=== PATIENT | female | born 1975 | race Caucasian/White ===

== ENCOUNTER 2017-10-11 21:57 | Inpatient (IN) | payer OTHER ==
[2017-10-11 22:21] VITALS: BMI 21.7
--- NOTE | 2017-10-11 22:56 | HP ---
CIWA Score - CIWA Score Nausea/Vomitin-No Nausea/No Vomiting Muscle Tremors: 4-Moderate,w/Arms Extend Anxiety: 2 Agitation: 2 Paroxysmal Sweats: 2 Orientation: 2-Disoriented Date<2 days Tacttile Disturbances: 2-Mild Itch/Numbness/Burn Auditory Disturbances: 2-Mild Harshness/Frighten Visual Disturbances: 2-Mild Sensitivity Headache: 1-Very Mild CIWA-Ar Total Score: 19 Admission ROS BHS - HPI Chief Complaint: WITHDRAWAL SYMPTOMS Allergies/Adverse Reactions: Allergies Allergy/AdvReac Type Severity Reaction Status Date / Time lactose Allergy Verified 10/11/17 22:53 LACTO Allergy Uncoded 10/11/17 22:53 History of Present Illness: 42 Y.O. WOMAN WITH AN EXTENSIVE HISTORY OF ALCOHOL DEPENDENCE IS HERE FOR HER FIRST ADMISSION TO DETOX. SHE REPORTS HER LONGEST PERIOD SOBER HAS BEEN 7 MONTHS WHILE RESIDING AT [facility]. Exam Limitations: Intoxication - Ebola screening Have you traveled outside of the country in the last 21 days: No Have you been sick,other than usual withdrawal symptoms: No - Review of Systems Constitutional: Chills, Loss of Appetite, Night Sweats, Unexplained wgt Loss EENT: reports: Double Vision, Tearing Respiratory: reports: No Symptoms reported Cardiac: reports: No Symptoms Reported GI: reports: No Symptoms Reported : reports: No Symptoms Reported Musculoskeletal: reports: Joint Pain (LEFT HIP) Integumentary: reports: No Symptoms Reported Neuro: reports: Headache, Tremors Endocrine: reports: No Symptoms Reported Hematology: reports: Anemia (CAROLA) Psychiatric: reports: Anxious, Depressed, other (Panic disorder, Agoraphobia) Other Systems: Reviewed and Negative Patient History - Patient Medical History Hx Anemia: Yes (CAROLA ) Hx Asthma: Yes Hx Chronic Obstructive Pulmonary Disease (COPD): No Hx Cancer: No Hx Cardiac Disorders: No Hx Congestive Heart Failure: No Hx Hypertension: No Hx Hypercholesterolemia: No Hx Pacemaker: No HX Cerebrovascular Accident: No Hx Seizures: No Hx Dementia: No Hx Diabetes: No Hx Gastrointestinal Disorders: Yes (GERD ) Hx Liver Disease: No Hx Genitourinary Disorders: No Hx Sexually Transmitted Disorders: No Hx Renal Disease (ESRD): No Hx Thyroid Disease: No Hx Human Immunodeficiency Virus (HIV): No Hx Hepatitis C: No Hx Depression: Yes Hx Suicide Attempt: Yes (ATTEMPTED DRUG OVERDOSE OF COLACE AT 13 Y.O.) Hx Bipolar Disorder: No Hx Schizophrenia: No Other Medical History: Agoraphobia, panic disorder, PCOS - Patient Surgical History Past Surgical History: Yes Hx Orthopedic Surgery: Yes Other Surgical History: Gastric bypass 2009; Left hip replacement 2007 Anesthesia Reaction: No - PPD History Documented Results: Positive w/o proof PPD to be Administered?: No - Reproductive History Patient is a Female of Child Bearing Age (11 -55 yrs old): Yes Last Menstrual Period: 09/30/17 Patient : No - Smoking Cessation Smoking history: Current every day smoker Have you smoked in the past 12 months: Yes Aproximately how many cigarettes per day: 10 Initiated information on smoking cessation: Yes 'Breaking Loose' booklet given: 10/11/17 - Substance & Tx. History Hx Alcohol Use: Yes Hx Substance Use: No Substance Use Type: Alcohol Hx Substance Use Treatment: Yes (7 months at [facility] in 2017) - Substances Abused Alcohol Route: Oral Frequency: Daily Amount used: 3 pints of liquor Age of first use: 20 Date of Last Use: 10/11/17 Family Disease History - Family Disease History Family Disease History: CA: Father (Thyroid; ), Respiratory: Grandparent (COPD), Mother (COPD), Other: Brother (ETOH dependence) Admission Physical Exam S - Vital Signs Vital Signs: Vital Signs - 24 hr 10/11/17 22:11 Temperature 96.7 F L Pulse Rate 75 Respiratory 18 Rate Blood Pressure 125/76 - Physical General Appearance: Yes: Disheveled, Intoxicated, Anxious HEENTM: Yes: Hearing grossly Normal, Normal ENT Inspection, Normocephalic, Normal Voice Respiratory: Yes: Chest Non-Tender, Lungs Clear, Normal Breath Sounds, No Respiratory Distress, No Accessory Muscle Use Neck: Yes: No masses,lesions,Nodules, Trachea in good position Breast: Yes: Breast Exam Deferred Cardiology: Yes: Regular Rhythm, Regular Rate Abdominal: Yes: Normal Bowel Sounds, Non Tender, Flat, Soft Genitourinary: Yes: Other (No complaints reported) Back: Yes: Normal Inspection Musculoskeletal: Yes: Other (Unsteady gait) Extremities: Yes: Normal Capillary Refill, Normal Inspection, Tremors Neurological: Yes: Alert, Normal Mood/Affect, Normal Response Integumentary: Yes: Normal Color, Dry, Warm Lymphatic: Yes: Within Normal Limits - Diagnostic (1) Alcohol dependence with uncomplicated withdrawal Current Visit: Yes Status: Chronic (2) PCOS (polycystic ovarian syndrome) Current Visit: Yes Status: Chronic (3) GERD (gastroesophageal reflux disease) Current Visit: Yes Status: Chronic (4) Nicotine dependence Current Visit: Yes Status: Chronic (5) Asthma Current Visit: Yes Status: Chronic (6) Congenital hip dislocation Current Visit: Yes Status: Chronic Cleared for Admission [facility] - Detox or Rehab [facility] Level of Care: Medically Managed Detox Regimen/Protocol: Librium S Breath Alcohol Content Breath Alcohol Content: 0.452 Urine Pregancy Test - Result Urine Test Results: Negative- NO Line Present Urine Drug Screen - Results Drug Screen Negative: Yes
[2017-10-11] MEDS ORDERED: MENTHOL/PHENOL 1 EACH UD MM PRN (23:38)
[2017-10-11] MEDS ORDERED: chlordiazePOXIDE HCL 25 MG CAPSULE PO PRN (23:38)
[2017-10-11] MEDS ORDERED: ACETAMINOPHEN 325 MG TABLET (FP) PO PRN (23:38)
[2017-10-11] MEDS ORDERED: MAGNESIUM CITRATE 300 ML BOTTLE PO PRN (23:38)
[2017-10-11] MEDS ORDERED: MAG HYDROX/AL HYDROX/SIMETH 30 ML UNIT-DOSE CUP PO PRN (23:38)
[2017-10-11] MEDS ORDERED: LOPERAMIDE HCL 2 MG CAPSULE PO PRN (23:38)
[2017-10-11] MEDS ORDERED: chlordiazePOXIDE HCL 25 MG CAPSULE PO ONE (23:38)
[2017-10-11] MEDS ORDERED: NICOTINE POLACRILEX 2 MG GUM BC PRN (23:38)
[2017-10-11] MEDS ORDERED: IBUPROFEN 400 MG TABLET (FP) PO PRN (23:38)
[2017-10-11] MEDS ORDERED: hydrOXYzine PAMOATE 50 MG CAPSULE (FP) PO PRN (23:38)
[2017-10-11] MEDS ORDERED: guaiFENesin/D-METHORPHAN HB 10 ML UNIT-DOSE CUPS PO PRN (23:38)
[2017-10-11] MEDS ORDERED: MAGNESIUM HYDROX 2400MG/30ML ORAL SUSPENSION 30 ML CUP PO PRN (23:38)
[2017-10-11] MEDS ORDERED: P-EPHED 60MG/TRIPROLIDI 2.5MG TABLET PO PRN (23:38)
[2017-10-11] MEDS ORDERED: ALBUTEROL SO4 18 GM HFA INHALER IH PRN (23:40)
[2017-10-12] MEDS: chlordiazePOXIDE HCL 25 MG CAPSULE PO SCH ×8 (01:12→22:22)
[2017-10-12] MEDS: PANTOPRAZOLE 20 MG TABLET (FP) PO SCH (10:37)
[2017-10-12] MEDS: PRENATAL VITAMINS W/ FOLIC ACID TABLET (FP) PO SCH (10:37)
[2017-10-12] MEDS: NICOTINE 14 MG/24 HOURS TOPICAL PATCH TD SCH (10:39)
[2017-10-12 10:43] LABS: URINE APPEARANCE CLEAR; URINE BILIRUBIN NEGATIVE (NEGATIVE); URINE BLOOD 1+ (NEGATIVE); URINE COLOR LTYELLOW; URINE GLUCOSE (UA) NEGATIVE (NEGATIVE); URINE KETONE NEGATIVE (NEGATIVE); URINE LEUK ESTERASE NEGATIVE (NEGATIVE); URINE NITRITE POSITIVE (NEGATIVE); URINE PROTEIN NEGATIVE (NEGATIVE); URINE UROBILINOGEN NEGATIVE mg/dL (0.2-1.0)
[2017-10-12 10:45] LABS: HEMATOCRIT 34.1 % (32.4-45.2); HEMOGLOBIN 11.3 GM/dL (10.7-15.3); MCH 31.7 pg (25.7-33.7); MEAN PLT VOLUME 6.4 fl (7.5-11.1); PLATELET COUNT 208 K/MM3 (134-434); RBC 3.55 M/mm3 (3.60-5.2); RDW 14.3 % (11.6-15.6); WHITE BLOOD COUNT 2.8 K/mm3 (4.0-10.0)
[2017-10-12 10:53] LABS: CHLORIDE 102 mmol/L (98-107); POTASSIUM 3.5 mmol/L (3.5-5.1); SODIUM 142 mmol/L (136-145)
[2017-10-12 10:55] LABS: EPI CELLS RARE /HPF (FEW); URINE BACTERIA MANY /hpf (NONE SEEN); URINE HYALINE CAST 4 /lpf; URINE MUCUS MODERATE
[2017-10-12 11:07] LABS: ALK PHOS 72 U/L (45-117); ANION GAP 12 (8-16); BILIRUBIN,TOTAL 0.4 mg/dL (0.2-1.0); BLOOD UREA NITROGEN 14 mg/dL (7-18); CALCIUM 7.7 mg/dL (8.5-10.1); CO2 28 mmol/L (21-32); CREATININE 0.6 mg/dL (0.55-1.02); GLUCOSE,RANDOM 73 mg/dL (74-106); SGOT/AST 31 U/L (15-37); SGPT/ALT 18 U/L (12-78); TOT PROT 6.1 g/dl (6.4-8.2)
--- NOTE | 2017-10-12 11:46 | PN ---
S CIWA - CIWA Score Nausea/Vomitin Muscle Tremors: 3 Anxiety: 3 Agitation: 2 Paroxysmal Sweats: 1-Minimal Palms Moist Orientation: 0-Oriented Tacttile Disturbances: 1-Very Mild Itch/Numbness Auditory Disturbances: 1-Very Mild Visual Disturbances: 0-None Headache: 2-Mild CIWA-Ar Total Score: 16 BHS Progress Note (SOAP) Subjective: ALERT,IRRITABLE,ANXIOUS,INTERRUPTED SLEEP,TREMOR Objective: 10/12/17 11:42 Vital Signs Temperature 98.2 F 10/12/17 10:24 Pulse Rate 85 10/12/17 10:24 Respiratory Rate 18 10/12/17 10:24 Blood Pressure 131/82 10/12/17 10:24 O2 Sat by Pulse Oximetry (%) EKG NSR,PROLONG QT NO CHEST PAIN,NO SOB,NO DIZZINESS Laboratory Last Values WBC 2.8 K/mm3 (4.0-10.0) L 10/12/17 08:00 RBC 3.55 M/mm3 (3.60-5.2) L 10/12/17 08:00 Hgb 11.3 GM/dL (10.7-15.3) 10/12/17 08:00 Hct 34.1 % (32.4-45.2) 10/12/17 08:00 MCV 96.0 fl (80-96) 10/12/17 08:00 MCH 31.7 pg (25.7-33.7) 10/12/17 08:00 MCHC 33.0 g/dl (32.0-36.0) 10/12/17 08:00 RDW 14.3 % (11.6-15.6) 10/12/17 08:00 Plt Count 208 K/MM3 (134-434) 10/12/17 08:00 MPV 6.4 fl (7.5-11.1) L 10/12/17 08:00 Sodium 142 mmol/L (136-145) 10/12/17 08:00 Potassium 3.5 mmol/L (3.5-5.1) 10/12/17 08:00 Chloride 102 mmol/L (98-107) 10/12/17 08:00 Carbon Dioxide 28 mmol/L (21-32) 10/12/17 08:00 Anion Gap 12 (8-16) 10/12/17 08:00 BUN 14 mg/dL (7-18) 10/12/17 08:00 Creatinine 0.6 mg/dL (0.55-1.02) 10/12/17 08:00 Creat Clearance w eGFR > 60 (>60) 10/12/17 08:00 Random Glucose 73 mg/dL (74-106) L 10/12/17 08:00 Calcium 7.7 mg/dL (8.5-10.1) L 10/12/17 08:00 Total Bilirubin 0.4 mg/dL (0.2-1.0) 10/12/17 08:00 AST 31 U/L (15-37) 10/12/17 08:00 ALT 18 U/L (12-78) 10/12/17 08:00 Alkaline Phosphatase 72 U/L (45-117) 10/12/17 08:00 Total Protein 6.1 g/dl (6.4-8.2) L 10/12/17 08:00 Albumin 3.0 g/dl (3.4-5.0) L 10/12/17 08:00 Urine Color Ltyellow 10/12/17 09:00 Urine Appearance Clear 10/12/17 09:00 Urine pH 5.0 (5.0-8.0) 10/12/17 09:00 Ur Specific [place] 1.006 (1.001-1.035) 10/12/17 09:00 Urine Protein Negative (NEGATIVE) 10/12/17 09:00 Urine Glucose (UA) Negative (NEGATIVE) 10/12/17 09:00 Urine Ketones Negative (NEGATIVE) 10/12/17 09:00 Urine Blood 1+ (NEGATIVE) H 10/12/17 09:00 Urine Nitrite Positive (NEGATIVE) 10/12/17 09:00 Urine Bilirubin Negative (NEGATIVE) 10/12/17 09:00 Urine Urobilinogen Negative mg/dL (0.2-1.0) 10/12/17 09:00 Ur Leukocyte Esterase Negative (NEGATIVE) 10/12/17 09:00 Urine WBC (Auto) 1 /hpf (3-5) 10/12/17 09:00 Urine RBC (Auto) None /hpf (0-3) 10/12/17 09:00 Ur Epithelial Cells Rare /HPF (FEW) 10/12/17 09:00 Urine Bacteria Many /hpf (NONE SEEN) 10/12/17 09:00 Hyaline Casts 4 /lpf 10/12/17 09:00 Urine Mucus Moderate 10/12/17 09:00 Assessment: 10/12/17 11:45 WITHDRAWAL SYMPTOM, Plan: CONTINUE DETOX,[facility] MONITORING TAKING METFORMIN 1000 MGS PO BID FOR POLYCYSTIC OVAREAN SYNDROME
[2017-10-12] MEDS: metFORMIN HCL 500 MG TABLET (FP) PO SCH ×2 (13:00→17:41)
--- NOTE | 2017-10-12 13:54 | CONSULT ---
[facility] Psychiatric Consult - Data Date of interview: 10/12/17 Admission source: [facility] Identifying data: First admission to [facility] for this 42 y/o female seeking detox treatment on for alcohol dependence.Patient is single without children,homeless,unemployed and supported on Public Assistance. Substance Abuse History: Confirmed by patient.See details in current [facility] report : Smoking history: Current every day smoker. Have you smoked in the past 12 months: Yes. Aproximately how many cigarettes per day: 10. Initiated information on smoking cessation: Yes. 'Breaking Loose' booklet given: . - Substance & Tx. History. Hx Alcohol Use: Yes. Hx Substance Use: No. Substance Use Type: Alcohol. Hx Substance Use Treatment: Yes (7 months at [facility] in 2017). - Substances Abused. Alcohol. Route: Oral. Frequency: Daily. Amount used: 3 pints of liquor. Age of first use: 20. Date of Last Use: 10/11/17 Medical History: Anemia,GERD,bronchial asthma,congenital hip dislocation, polycystic ovarian syndrome,history of gastric bypass (2009) and orthosurgery ( left hip replacement in 2007). Psychiatric History: No reported history of psychiatric hospitalizations.[place] is currently under the care of a private psychiatrist at the [facility] in the [place].medicated with prozac 40 mg/day + seroquel 200 mg/hs + buspar 10 mg bid.Last took her medications two days ago (self-report).Diagnose with Panic Disorder with agoraphobia.Ms Peterson denies history of suicide attempts. Physical/Sexual Abuse/Trauma History: Patient denies history of abuse. Additional Comment: Drug Screen is negative. Mental Status Exam - Mental Status Exam Alert and Oriented to: Time, Place, Person Cognitive Function: Good Patient Appearance: Well Groomed Mood: Anxious, Hopeful Affect: Mood Congruent Patient Behavior: Fatigued, Appropriate, Cooperative Speech Pattern: Clear, Appropriate Voice Loudness: Normal Thought Process: Intact, Goal Oriented Thought Disorder: Not Present Hallucinations: Denies Suicidal Ideation: Denies Homicidal Ideation: Denies Insight/Judgement: Fair Sleep: Poorly, Difficulty falling asleep Appetite: Good Muscle strength/Tone: Normal (no complaint of rigidity or weakness) Gait/Station: Normal Psychiatric Findings - Problem List ([place] 1, 2,3) (1) Alcohol dependence with uncomplicated withdrawal Current Visit: Yes Status: Chronic (2) Nicotine dependence Current Visit: Yes Status: Chronic (3) Panic disorder with agoraphobia Current Visit: Yes Status: Acute Comment: As per self-report.On medications.Currently enrolled in outatient psychiatric care at the [facility] in the [place]. (4) Insomnia Current Visit: Yes Status: Chronic - Initial Treatment Plan Initial Treatment Plan: Psychoeducation and support provided in session.Sleep hygiene recommended.Detoxification in progress.Medications : prozac 40 mg po daily + buspar 10 mg po trazodone 100 mg po hs.Side effects/benefits of each drug are discussed with the patient.No evidence of risperdal in OPD regime of medications (pharmacy claims of 08/29/17 at [facility] were revisited) .Ms Peterson consents (verbally) to this plan of care.Observation.
--- NOTE | 2017-10-12 16:44 | EKG ---
Test Reason : Blood Pressure : / mmHG Vent. Rate : 070 BPM Atrial Rate : 070 BPM P-R Int : 124 ms QRS Dur : 090 ms QT Int : 448 ms P-R-T Axes : 053 046 059 degrees QTc Int : 483 ms NORMAL SINUS RHYTHM PROLONGED QT ABNORMAL ECG WHEN COMPARED WITH ECG OF 15-SEP-2010 11:22, T WAVE INVERSION NO LONGER EVIDENT IN INFERIOR LEADS Confirmed by TRACY NG MD ([id number]) on 10/12/2017 4:44:04 PM Referred By: Confirmed By:TRACY NG MD
[2017-10-12] MEDS ORDERED: busPIRone HCL 10 MG TABLET (FP) PO SCH (22:00)
[2017-10-12] MEDS: THIAMINE HCL 100 MG TABLET (FP) PO SCH (22:22)
[2017-10-12] MEDS: traZODone HCL 100 MG TABLET (FP) PO SCH (22:22)
[2017-10-12] MEDS: busPIRone HCL 10 MG TABLET (FP) PO SCH (22:22)
[2017-10-13] MEDS: chlordiazePOXIDE 5 MG CAPSULE PO SCH ×4 (05:48→22:16)
[2017-10-13] MEDS: metFORMIN HCL 500 MG TABLET (FP) PO SCH ×2 (06:24→17:45)
[2017-10-13] MEDS: FLUoxetine HCL 20 MG CAPSULE (FP) PO SCH (10:26)
[2017-10-13] MEDS: NICOTINE 14 MG/24 HOURS TOPICAL PATCH TD SCH (10:27)
[2017-10-13] MEDS: PRENATAL VITAMINS W/ FOLIC ACID TABLET (FP) PO SCH (10:27)
[2017-10-13] MEDS: PANTOPRAZOLE 20 MG TABLET (FP) PO SCH (10:27)
[2017-10-13] MEDS: busPIRone HCL 10 MG TABLET (FP) PO SCH ×2 (10:27→22:16)
--- NOTE | 2017-10-13 13:27 | PN ---
[facility] CIWA - CIWA Score Nausea/Vomitin-No Nausea/No Vomiting Muscle Tremors: 3 Anxiety: 3 Agitation: 3 Paroxysmal Sweats: 1-Minimal Palms Moist Orientation: 0-Oriented Tacttile Disturbances: 0-None Auditory Disturbances: 0-None Visual Disturbances: 0-None Headache: 0-None Present CIWA-Ar Total Score: 10 S Progress Note (SOAP) Subjective: tremor sweat GI upset anxiety Objective: 10/13/17 13:27 Vital Signs Temperature 96.3 F L 10/13/17 10:00 Pulse Rate 88 10/13/17 10:00 Respiratory Rate 18 10/13/17 10:00 Blood Pressure 118/76 10/13/17 10:00 O2 Sat by Pulse Oximetry (%) Laboratory Last Values WBC 2.8 K/mm3 (4.0-10.0) L 10/12/17 08:00 RBC 3.55 M/mm3 (3.60-5.2) L 10/12/17 08:00 Hgb 11.3 GM/dL (10.7-15.3) 10/12/17 08:00 Hct 34.1 % (32.4-45.2) 10/12/17 08:00 MCV 96.0 fl (80-96) 10/12/17 08:00 MCH 31.7 pg (25.7-33.7) 10/12/17 08:00 MCHC 33.0 g/dl (32.0-36.0) 10/12/17 08:00 RDW 14.3 % (11.6-15.6) 10/12/17 08:00 Plt Count 208 K/MM3 (134-434) 10/12/17 08:00 MPV 6.4 fl (7.5-11.1) L 10/12/17 08:00 Sodium 142 mmol/L (136-145) 10/12/17 08:00 Potassium 3.5 mmol/L (3.5-5.1) 10/12/17 08:00 Chloride 102 mmol/L (98-107) 10/12/17 08:00 Carbon Dioxide 28 mmol/L (21-32) 10/12/17 08:00 Anion Gap 12 (8-16) 10/12/17 08:00 BUN 14 mg/dL (7-18) 10/12/17 08:00 Creatinine 0.6 mg/dL (0.55-1.02) 10/12/17 08:00 Creat Clearance w eGFR > 60 (>60) 10/12/17 08:00 POC Glucometer 78 UNITS (80-120) 10/13/17 05:47 Random Glucose 73 mg/dL (74-106) L 10/12/17 08:00 Calcium 7.7 mg/dL (8.5-10.1) L 10/12/17 08:00 Total Bilirubin 0.4 mg/dL (0.2-1.0) 10/12/17 08:00 AST 31 U/L (15-37) 10/12/17 08:00 ALT 18 U/L (12-78) 10/12/17 08:00 Alkaline Phosphatase 72 U/L (45-117) 10/12/17 08:00 Total Protein 6.1 g/dl (6.4-8.2) L 10/12/17 08:00 Albumin 3.0 g/dl (3.4-5.0) L 10/12/17 08:00 Urine Color Ltyellow 10/12/17 09:00 Urine Appearance Clear 10/12/17 09:00 Urine pH 5.0 (5.0-8.0) 10/12/17 09:00 Ur Specific [place] 1.006 (1.001-1.035) 10/12/17 09:00 Urine Protein Negative (NEGATIVE) 10/12/17 09:00 Urine Glucose (UA) Negative (NEGATIVE) 10/12/17 09:00 Urine Ketones Negative (NEGATIVE) 10/12/17 09:00 Urine Blood 1+ (NEGATIVE) H 10/12/17 09:00 Urine Nitrite Positive (NEGATIVE) 10/12/17 09:00 Urine Bilirubin Negative (NEGATIVE) 10/12/17 09:00 Urine Urobilinogen Negative mg/dL (0.2-1.0) 10/12/17 09:00 Ur Leukocyte Esterase Negative (NEGATIVE) 10/12/17 09:00 Urine WBC (Auto) 1 /hpf (3-5) 10/12/17 09:00 Urine RBC (Auto) None /hpf (0-3) 10/12/17 09:00 Ur Epithelial Cells Rare /HPF (FEW) 10/12/17 09:00 Urine Bacteria Many /hpf (NONE SEEN) 10/12/17 09:00 Hyaline Casts 4 /lpf 10/12/17 09:00 Urine Mucus Moderate 10/12/17 09:00 RPR Titer Nonreactive (NONREACTIVE) 10/12/17 08:00 lab noted Assessment: 10/13/17 13:27 withdrawal sx Plan: continue detox
[2017-10-13] MEDS: traZODone HCL 100 MG TABLET (FP) PO SCH (22:16)
[2017-10-13] MEDS: THIAMINE HCL 100 MG TABLET (FP) PO SCH (22:16)
[2017-10-13 22:21] VITALS: PULSE 73
[2017-10-14] MEDS ORDERED: chlordiazePOXIDE HCL 10 MG CAPSULE PO SCH (05:00)
[2017-10-14 06:29] VITALS: BP 116/74; TEMP 97.3
[2017-10-14] MEDS: metFORMIN HCL 500 MG TABLET (FP) PO SCH (06:34)
--- NOTE | 2017-10-14 09:11 | PN ---
S Progress Note (SOAP) Subjective: ALERT,NO COMPLAINT,NO WITHDRAWAL SYMPTOM Objective: 10/14/17 09:10 Vital Signs Temperature 97.3 F L 10/14/17 06:00 Pulse Rate 73 10/14/17 06:00 Respiratory Rate 16 10/14/17 06:00 Blood Pressure 116/74 10/14/17 06:00 O2 Sat by Pulse Oximetry (%) Assessment: 10/14/17 09:10 NO WITHDRAWAL SYMPTOM Plan: PATIENT IS STABLE FOR DISCHARGE TODAY TO GO TO [facility] TO DAY
[2017-10-14] MEDS: PRENATAL VITAMINS W/ FOLIC ACID TABLET (FP) PO SCH (09:12)
[2017-10-14] MEDS: PANTOPRAZOLE 20 MG TABLET (FP) PO SCH (09:13)
[2017-10-14] MEDS: busPIRone HCL 10 MG TABLET (FP) PO SCH (09:13)
[2017-10-14] MEDS: FLUoxetine HCL 20 MG CAPSULE (FP) PO SCH (09:13)
--- NOTE | 2017-10-14 09:16 | DS ---
[facility] Detox Discharge Summary Admission Date: 10/11/17 Discharge Date: 10/14/17 - History Present History: Alcohol Dependence Additional Comments: FOLLOW UP WITH AFTER CARE PROGRAM ARRANGEMENT Pertinent Past History: POLYCYSTIC OVARIAN SYNDROME GERD ASTHMA NICOTINE DEPENDENCE HISTORY OF CONGENITAL HIP DISLOCATION - Physical Exam Results Vital Signs: Vital Signs Temperature 97.3 F L 10/14/17 06:00 Pulse Rate 73 10/14/17 06:00 Respiratory Rate 16 10/14/17 06:00 Blood Pressure 116/74 10/14/17 06:00 O2 Sat by Pulse Oximetry (%) Pertinent Admission Physical Exam Findings: WITHDRAWAL SYMPTOM AND FINDING - Treatment Hospital Course: Detox Protocol Followed, Detoxed Safely, Responded well, Discharged Condition Good Patient has Accepted a Rehab Referral to: DECLINED - Medication Discharge Medications: Ambulatory Orders Albuterol Sulfate Inhaler - [Ventolin HFA Inhaler -] IH Q4HWA PRN 10/11/17 Fluoxetine HCl [Prozac -] 40 mg PO DAILY 10/11/17 Metformin HCl [Metformin HCl ER] 1,000 mg PO BID 10/11/17 Omeprazole 20 mg PO DAILY 10/11/17 Risperidone [Risperdal] 4 mg PO DAILY 10/11/17 - Diagnosis (1) Alcohol dependence with uncomplicated withdrawal Current Visit: Yes Status: Chronic (2) Asthma Current Visit: Yes Status: Chronic (3) Congenital hip dislocation Current Visit: Yes Status: Chronic (4) GERD (gastroesophageal reflux disease) Current Visit: Yes Status: Chronic (5) Nicotine dependence Current Visit: Yes Status: Chronic (6) PCOS (polycystic ovarian syndrome) Current Visit: Yes Status: Chronic - AMA Did Patient Leave Against Medical Advice: No
== END 2017-10-14 09:47 | disposition home or self-care (01) | DRG 775 ==
LOC: YASAS 21:57 → Y6N 22:58
PROVIDERS: ADMIT Internal Medicine; ATTEND Internal Medicine
PROC: HZ2ZZZZ Detoxification Services for Substance Abuse Treatment (ICD-10-PCS; principal; 2017-10-11)
DX: F10.230 Alcohol dependence with withdrawal, uncomplicated (principal); F17.210 Nicotine dependence, cigarettes, uncomplicated; F40.01 Agoraphobia with panic disorder; J45.909 Unspecified asthma, uncomplicated; K21.9 Gastro-esophageal reflux disease without esophagitis; E28.2 Polycystic ovarian syndrome; G47.00 Insomnia, unspecified; D50.9 Iron deficiency anemia, unspecified; Z79.84 Long term (current) use of oral hypoglycemic drugs; Z98.84 Bariatric surgery status; Z96.642 Presence of left artificial hip joint; Z91.011 Allergy to milk products; Z91.5 Personal history of self-harm
CPT/HCPCS: 36415; 80053; 81003; 81015; 82962; 85027; 86593; 93005; 93010